=== PATIENT | male | born 1990 | race Hispanic/Latino ===

== ENCOUNTER 2018-06-17 02:30 | Emergency (ER) | payer OTHER ==
[2018-06-17 02:58] LABS: #Eosinphils 0.1 thou/uL (0.0-0.7); #Lymphocytes 1.7 thou/uL (1.20-3.40); #Monocytes 0.4 thou/uL (0.11-0.59); #Neutrophils 5.6 thou/uL (1.40-6.50); %Basophils 0.5 % (0.0-1.0); %Eosinophils 1.8 % (0.0-10.0); %Lymphocytes 21.7 % (21.0-51.0); %Monocytes 4.8 % (0.0-10.0); %Neutrophils 71.2 % (42.0-75.0); Mean Corpuscular HGB CONC 33.7 g/dL (32.0-36.0); Mean Corpuscular Hemoglobin 30.3 pg (27.0-31.0); Mean Platelet Volume 7.4 fL (7.4-10.4); Platelet Count 230 thou/uL (130-400); RBC Distribution Width 12.3 % (11.5-14.5); Red Blood Cell (RBC) Count 4.94 mill/uL (4.70-6.10); White Blood Cell (WBC) Count 7.8 thou/uL (4.8-10.8)
[2018-06-17 03:17] LABS: ALT (SGPT) 11 U/L (8-55); AST (SGOT) 16 U/L (5-34); Alkaline Phosphatase 82 U/L (40-150); Anion Gap 15 mmol/L (10-20); BUN (Urea Nitrogen) 23 mg/dL (8.9-20.6); Bilirubin, Total 0.5 mg/dL (0.2-1.2); Calc. Creatinine Clearance 0 mL/min (70-130); Calcium 10.1 mg/dL (7.8-10.44); Carbon Dioxide 24 mmol/L (22-29); Chloride 105 mmol/L (98-107); Estimated GFR-MDRD Greater than 90; Globulin 3.1 g/dL (2.4-3.5); Glucose 130 mg/dL (70-105); Potassium 4.1 mmol/L (3.5-5.1); Protein, Total 8.1 g/dL (6.0-8.3); Sodium 140 mmol/L (136-145)
[2018-06-17 05:03] LABS: Bilirubin Negative (Negative); Blood, Urine Negative (Negative); Clarity CLEAR (Clear); Glucose, Urine (Dipstick) Negative (Negative); Leukocyte Negative (Negative); Nitrite Negative (Negative); Protein, Urine (Dipstick) Trace mg/dL (Neg-Trace); Specific Gravity, Urine 1.027 (1.002-1.036); pH, Urine 8.5 (5.0-9.0)
[2018-06-17] MEDS ORDERED: Metoclopramide HCl 10 MG/2 ML VIAL ONE (06:21)
--- NOTE | 2018-06-17 09:25 | ULT ---
PRELIMINARY REPORT/[facility]/EMERGENTY AFTER-HOURS PROCEDURE US Scrotum EXAM DATE/TIME: Exam ordered 06/17/2018 6:16 AM CLINICAL HISTORY: 28 years old, male; Signs and symptoms; Other: Pt feel lump in lt superior scrotum TECHNIQUE: Real-time ultrasound of the scrotum with color Doppler and image documentation. COMPARISON: No relevant prior studies available. FINDINGS: Right testicle: Unremarkable. No mass. No torsion. Left testicle: Unremarkable. No mass. No torsion. Epididymides: Small incidental left epididymal cyst. Epididymides otherwise normal. Scrotum: No significant hydrocele. IMPRESSION: No acute findings. Thank you for allowing us to participate in the care of your patient. Dictated and Authenticated by: Sebastián Cheatham MD 06/17/2018 7:16 AM Central Time ([place] & [place]) EMERGENT AFTER HOURS TESTICULAR ULTRASOUND: 06/17/2018 HISTORY: The patient feels a lump in the superior scrotum. Torsion. COMPARISON: None available. FINDINGS: The testicles demonstrate a homogeneous and echotexture and a normal appearance bilaterally. The rig ht testicle measures 4.4 cm x 2.2 cm x 2.8 cm, with the left testicle measuring 4.2 cm x 2.5 cm x 3 c m. Doppler evaluation of each testicle with spectral analysis and color-flow evaluation demonstrates arterial and venous flow in each testicle. No testicular mass is visualized. There is a small, 0.6 cm, anechoic structure seen in the left epididymis, likely related to a small e pididymal cyst. The epididymides are otherwise normal in appearance. IMPRESSION: Normal appearance of bilateral testicles without evidence of a testicular mass. Arterial flow is doc umented in each testicle. The findings are in agreement with the preliminary report by Anjana. POS: [facility]
--- NOTE | 2018-06-17 09:27 | CT ---
PRELIMINARY REPORT/[facility]/EMERGENTY AFTER-HOURS PROCEDURE CT Abdomen and Pelvis With Intravenous Contrast EXAM DATE/TIME: 06/17/2018 6:49 AM CLINICAL HISTORY: 28 years old, male; Pain and signs and symptoms; Nausea and vomiting; Abdominal pain; Epigastric; Pat ient HX: Er 6; M28 reports to ed C/O vomiting. PT reports that he was stressed out at work and then started to get clammy and got tunnel vision and began vomiting. PT reports he felt 'needles scra ping' across his abdomen and now his testicles hurt as if they are stretching. Symptoms are localized , most severe in the suprapubic region, most severe epigastric. Surgical history of appendectomy TECHNIQUE: Axial computed tomography images of the abdomen and pelvis with intravenous contrast. Coronal reformatted images were created and reviewed. COMPARISON: No relevant prior studies available. FINDINGS: Lower thorax: No acute findings. ABDOMEN: Liver: Normal. No mass. Gallbladder and bile ducts: Normal. No calcified stones. No ductal dilation. Pancreas: Normal. No ductal dilation. Spleen: Normal. No splenomegaly. Adrenals: Normal. No mass. Kidneys and ureters: Normal. No hydronephrosis. Stomach and bowel: No bowel wall thickening or intestinal obstruction. Appendix: Appendix not visualized. No evidence of appendicitis. PELVIS: Bladder: Unremarkable as visualized. Reproductive: Unremarkable as visualized. ABDOMEN and PELVIS: Intraperitoneal space: Normal. No free air. No significant fluid collection. Bones/joints: No acute fracture. No dislocation. Soft tissues: Left inguinal hernia containing fat only. Vasculature: Normal. No abdominal aortic aneurysm. Lymph nodes: Normal. No enlarged lymph nodes. IMPRESSION: No acute findings. Thank you for allowing us to participate in the care of your patient. Dictated and Authenticated by: Sebastián Cheatham MD 06/17/2018 7:26 AM Central Time ([place] & [place]) EMERGENT AFTER HOURS CT ABDOMOEN AND PELVIS WITH IV CONTRAST: 06/17/2018 HISTORY: Abdominal pain. The patient feels as if needles are scraping across his abdomen. Testicular pain. IMPRESSION: 1. No acute findings are seen in the abdomen or pelvis. 2. Small amount of fluid dependent within the distal esophagus, with air in the esophagus. Findings may be related to gastroesophageal reflux. The findings are in agreement with the preliminary report by Anjana. POS: [facility]
[2018-06-17] MEDS ORDERED: ISOVUE-370 76%-LOCM 1 ML ONE (11:41)
== END 2018-06-17 08:02 | disposition home or self-care (01) ==
LOC: ERS 02:30
DX: R11.2 Nausea with vomiting, unspecified (principal)
CPT/HCPCS: 36415; 74177; 76870; 80053; 81003; 83690; 85025; 93976; 96361; 96374; 96375; J2270; J2765

== ENCOUNTER 2018-08-07 18:05 | Emergency (ER) | payer BC, OTHER ==
[2018-08-07 18:46] LABS: #Basophils 0.1 thou/uL (0.0-0.2); #Eosinphils 0.5 thou/uL (0.0-0.7); #Lymphocytes 3.8 thou/uL (1.20-3.40); #Monocytes 0.4 thou/uL (0.11-0.59); #Neutrophils 3.8 thou/uL (1.40-6.50); %Basophils 1.5 % (0.0-1.0); %Eosinophils 5.4 % (0.0-10.0); %Lymphocytes 43.6 % (21.0-51.0); %Monocytes 5.1 % (0.0-10.0); %Neutrophils 44.4 % (42.0-75.0); Hemoglobin 13.8 g/dL (14.0-18.0); Mean Corpuscular Hemoglobin 30.8 pg (27.0-31.0); Mean Corpuscular Volume 93.5 fL (78.0-98.0); Mean Platelet Volume 7.5 fL (7.4-10.4); Platelet Count 273 thou/uL (130-400); RBC Distribution Width 12.6 % (11.5-14.5); Red Blood Cell (RBC) Count 4.47 mill/uL (4.70-6.10); White Blood Cell (WBC) Count 8.7 thou/uL (4.8-10.8)
[2018-08-07 19:06] LABS: ALT (SGPT) 8 U/L (8-55); AST (SGOT) 14 U/L (5-34); Albumin 4.4 g/dL (3.5-5.0); Alkaline Phosphatase 85 U/L (40-150); Anion Gap 13 mmol/L (10-20); BUN (Urea Nitrogen) 15 mg/dL (8.9-20.6); Bilirubin, Total 0.3 mg/dL (0.2-1.2); Calc. Creatinine Clearance 0 mL/min (70-130); Calcium 9.2 mg/dL (7.8-10.44); Carbon Dioxide 23 mmol/L (22-29); Chloride 108 mmol/L (98-107); Estimated GFR-MDRD Greater than 90; Glucose 98 mg/dL (70-105); Lipase 16 U/L (8-78); Potassium 4.4 mmol/L (3.5-5.1); Protein, Total 7.4 g/dL (6.0-8.3); Sodium 140 mmol/L (136-145)
[2018-08-07] MEDS ORDERED: Ondansetron ODT 4 MG TAB ONE (21:16)
== END 2018-08-07 22:35 | disposition home or self-care (01) ==
LOC: ERS 18:05
DX: R11.2 Nausea with vomiting, unspecified (principal); R19.7 Diarrhea, unspecified
CPT/HCPCS: 80053; 83690; 85025; 99284; Q0162

== ENCOUNTER 2019-03-15 00:30 | Emergency (ER) | payer BC, OTHER ==
[2019-03-15] MEDS ORDERED: Ibuprofen 800 MG TAB ONE (01:07)
--- NOTE | 2019-03-15 07:54 | RAD ---
Exam: XR Ankle Rt 3 View STANDARD HISTORY: Right ankle injury. COMPARISON: None FINDINGS: Subcutaneous soft tissue swelling is seen at the lateral aspect of the right ankle. No acute fracture, dislocation, or other acute osseous abnormality is identified. IMPRESSION: Subcutaneous soft tissue swelling without obvious fracture right ankle.
== END 2019-03-15 01:42 | disposition home or self-care (01) ==
LOC: ERS 00:30
DX: S93.401A Sprain of unspecified ligament of right ankle, initial encounter (principal); X50.9XXA Other and unspecified overexertion or strenuous movements or postures, initial encounter

== ENCOUNTER 2019-12-15 18:27 | Emergency (ER) | payer OTHER ==
[2019-12-15] MEDS ORDERED: Ondansetron ODT 4 MG TAB ONE (19:31)
== END 2019-12-15 19:29 | disposition home or self-care (01) ==
LOC: ERS 18:27
DX: J06.9 Acute upper respiratory infection, unspecified (principal)
CPT/HCPCS: 87804; 99283; Q0162

== ENCOUNTER 2019-12-16 19:00 | Emergency (ER) | payer OTHER | END 2019-12-16 19:59 | disposition left against medical advice (07) | LOC: ERS 19:00 | DX: Z53.21 Procedure and treatment not carried out due to patient leaving prior to being seen by health care provider (principal) ==

== ENCOUNTER 2020-02-04 22:46 | Emergency (ER) | payer OTHER | END 2020-02-04 23:30 | disposition home or self-care (01) | LOC: ERS 22:46 | DX: J06.9 Acute upper respiratory infection, unspecified (principal); F41.9 Anxiety disorder, unspecified | CPT/HCPCS: 99283 ==

== ENCOUNTER 2021-02-17 19:19 | Emergency (ER) | payer OTHER ==
[2021-02-17 20:28] LABS: Bacteria/HPF None Seen HPF (None Seen); Bilirubin Negative (Negative); Blood, Urine Trace (Negative); Clarity Turbid (Clear); Glucose, Urine (Dipstick) Normal (Negative); Ketone, Urine Trace mg/dL (Negative); Leukocyte Negative Leu/uL (Negative); Nitrite Negative (Negative); Protein, Urine (Dipstick) Negative (Neg-Trace); RBC/HPF 0-3 HPF (0-3); Specific Gravity, Urine 1.021 (1.002-1.036); Squamous Epithelial None Seen HPF (0-3); Urobilinogen Normal mg/dL (Less than 2); WBC/HPF 0-3 HPF (0-3)
[2021-02-17] MEDS ORDERED: Ibuprofen 200 MG TAB ONE (21:03)
== END 2021-02-17 21:04 | disposition home or self-care (01) ==
LOC: ERS 19:19
DX: I86.1 Scrotal varices (principal); D50.9 Iron deficiency anemia, unspecified
CPT/HCPCS: 76870; 81003; 81015; 93976